=== PATIENT | male | born 1990 | race Caucasian/White ===

== ENCOUNTER 2018-02-08 17:01 | Emergency (ER) | payer MEDICAID ==
[~2018-02-08] VITALS: Ht 177.8 cm; Wt 70.3 kg
== END 2018-02-08 19:27 | disposition home or self-care (01) ==
LOC: ED 17:01
DX: T67.5XXA Heat exhaustion, unspecified, initial encounter (principal); N18.9 Chronic kidney disease, unspecified; F17.200 Nicotine dependence, unspecified, uncomplicated
CPT/HCPCS: 80053; 85025; 96374; 99284; J2405; J7030

== ENCOUNTER 2018-03-08 12:19 | Emergency (ER) | payer SELFPAY ==
[~2018-03-08] VITALS: Ht 177.8 cm; Wt 70.3 kg
== END 2018-03-08 12:34 | disposition home or self-care (01) ==
LOC: ED 12:19
DX: S61.432A Puncture wound without foreign body of left hand, initial encounter (principal); W22.8XXA Striking against or struck by other objects, initial encounter